=== PATIENT | male | born 1965 | race Caucasian/White ===

== ENCOUNTER 2019-07-16 11:21 | Emergency (ER) | payer SELFPAY ==
[2019-07-16 13:59] VITALS: BP 108/72
--- NOTE | 2019-07-16 14:02 | UC ---
Lower Extremity/Ankle HPI - HPI Summary HPI Summary: 54 yo male presents with knee and ankle injury. 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 Since that time has had mild pain to medial knee and anterior ankle. Ambulatory without assistance. Nothing OTC for symptoms. Denies numbness or tingling. - History of Current Complaint Chief Complaint: UCLowerExtremity Stated Complaint: ANKLE/KNEE INJURY Time Seen by Provider: 07/16/19 14:01 Hx Obtained From: Patient Severity Initially: Mild Severity Currently: Mild Pain Intensity: 3 Pain Scale Used: 0-10 Numeric - Allergies/Home Medications Allergies/Adverse Reactions: Allergies Allergy/AdvReac Type Severity Reaction Status Date / Time Penicillins Allergy Hives Verified 07/16/19 13:59 Home Medications: Home Medications Metformin ER (NF) [Glucophage ER 750 MG TAB (NF)] 1,500 mg PO DAILY 07/16/19 [ History Confirmed 07/16/19] PMH/Surg Hx/FS Hx/Imm Hx Endocrine History: Diabetes - Surgical History Surgical History: Yes Surgery Procedure, Year, and Place: wisdom teeth extraction, bilat knee scopes, bariatric surgery, right heel spur - Family History Known Family History: Positive: None - Social History Occupation: Employed Full-time Lives: With Family Alcohol Use: Occasionally Substance Use Type: None Smoking Status (MU): Never Smoked Tobacco Review of Systems All Other Systems Reviewed And Are Negative: No Constitutional: Positive: Negative Skin: Positive: Negative Respiratory: Positive: Negative Cardiovascular: Positive: Negative Neurovascular: Positive: Negative Musculoskeletal: Positive: Other: - Right knee and ankle pain Neurological: Positive: Negative Psychological: Positive: Negative Physical Exam - Summary Physical Exam Summary: GENERAL: NAD. WDWN. No pain distress. SKIN: No rashes, sores, lesions, or open wounds. CHEST: No accessory muscle use. Breathing comfortably and in no distress. CV: Pulses intact popliteal, PT, and DP. Cap refill <2seconds MSK: RIGHT KNEE: FROM. Strength 5/5. No edema or obvious bony deformities. No patella apprehension. Negative Andrea, A/P drawer, Shreya, and varus/valgus stress. RIGHT ANKLE: FROM. Mild edema about ankle joint. Strength 5/5. No point tenderness. Negative talar tilt. No increased laxity. Negative Bryant test. NEURO: Alert. Sensations intact and symmetric B/L LEs PSYCH: Age appropriate behavior. Triage Information Reviewed: Yes Vital Signs: Initial Vital Signs Temp 97.9 F 07/16/19 13:55 Pulse 70 07/16/19 13:55 Resp 16 07/16/19 13:55 BP 108/72 07/16/19 13:55 Pulse Ox 99 07/16/19 13:55 Vital Signs Reviewed: Yes Diagnostics - Radiology Knee XR Radiology Interpretation Completed By: Radiologist Summary of Radiographic Findings: IMPRESSION: SMALL JOINT EFFUSION, NO FRACTURE IS SEEN. Ankle XR Radiology Interpretation Completed By: Radiologist Summary of Radiographic Findings: IMPRESSION: SOFT TISSUE SWELLING, NO FRACTURE IS SEEN. Lower Extremity Course/Dx - Course Course Of Treatment: XRs as above. Suspect sprain/strain. Advised to rest, ice, and elevate to reduce pain and swelling. Declined gel splint or crutches today. Advised to be rechecked by Occupational Health if symptoms do not improve - Differential Dx/Diagnosis Provider Diagnosis: Ankle sprain, Knee sprain Discharge ED - Sign-Out/Discharge Documenting (check all that apply): Patient Departure All imaging exams completed and their final reports reviewed: Yes - Discharge Plan Condition: Stable Disposition: HOME Patient Education Materials: Ankle Sprain (ED) Referrals: Tiffanie Denson NP [Primary Care Provider] - Nico Rao MD [Medical Doctor] - If Needed Additional Instructions: The X-Rays of your knee and ankle are normal. It appears you have a sprain/strain of your knee and ankle. Rest, ice, and elevate your knee and ankle to reduce pain and swelling. If your symptoms do not improve, please call Occupational Medicine (worker's comp) at the number below to schedule an appointment for a recheck - Billing Disposition and Condition Condition: STABLE Disposition: Home
== END 2019-07-16 15:04 | disposition home or self-care (01) ==
LOC: UCEAST 11:21
DX: S83.91XA Sprain of unspecified site of right knee, initial encounter (principal); S93.401A Sprain of unspecified ligament of right ankle, initial encounter; E11.9 Type 2 diabetes mellitus without complications; M25.471 Effusion, right ankle; M25.461 Effusion, right knee; Z88.0 Allergy status to penicillin; Z79.84 Long term (current) use of oral hypoglycemic drugs; W18.40XA Slipping, tripping and stumbling without falling, unspecified, initial encounter; Y92.9 Unspecified place or not applicable; Y99.0 Civilian activity done for income or pay
CPT/HCPCS: 99211; G0463